=== PATIENT | male | born 1940 | race Two or more races ===

== ENCOUNTER 2019-06-20 10:48 | Inpatient (IN) | payer MEDICARE, MEDICAID ==
[~2019-06-20] VITALS: Ht 165.1 cm; Wt 59.0 kg
[2019-06-20 13:17] LABS: BASOPHILS % 0.8 % (0.0-2.0); EOSINOPHILS % 0.6 % (0.0-5.0); LYMPHOCYTES % 16.5 % (20.0-50.0); MEAN CORPUSCULAR HEMOGLOBIN 29.1 pg (28.0-32.0); MEAN CORPUSCULAR VOLUME 87.4 fL (80.0-94.0); MEAN PLATELET VOLUME 11.4 fl (7.4-10.4); MONOCYTES % 6.4 % (2.0-8.0); NEUTROPHILS % 75.7 % (40.0-76.0); PLATELET 137 x1000/uL (130-400); RED BLOOD CELL COUNT 4.46 mill/uL (4.7-6.1); RED CELL DISTRIBUTION WIDTH 16.5 % (11.6-14.6)
[2019-06-20 13:24] LABS: PROTHROMBIN TIME 10.8 sec (9.6-11.0)
[2019-06-20 13:26] LABS: CHLORIDE 106 mEq/L (98-107)
[2019-06-20] MEDS ORDERED: SODIUM CHLORIDE 0.9% 1,000 ML IV ONE (14:45)
[2019-06-20] MEDS ORDERED: ONDANSETRON HCL 4MG/2ML INJ IV PRN (16:15)
[2019-06-20] MEDS ORDERED: ACETAMINOPHEN 650MG SUPP PR PRN (16:15)
[2019-06-20 16:47] VITALS: BP 127/76
[2019-06-20 20:00] VITALS: BP 138/81
[2019-06-21] VITALS: BP 133/85
[2019-06-21 04:00] VITALS: BP 96/67
[2019-06-21] MEDS ORDERED: LORAZEPAM 2MG/ML CPJ IM PRN (04:00)
[2019-06-21] MEDS ORDERED: LORAZEPAM 2MG/ML CPJ IV PRN (04:30)
[2019-06-21 08:00] VITALS: BP 121/71
[2019-06-21 08:03] LABS: CHLORIDE 109 mEq/L (98-107)
[2019-06-21] MEDS ORDERED: ALBUTEROL (0.083%) 2.5MG/3ML NEB HHN ONE (08:30)
[2019-06-21] MEDS ORDERED: SODIUM POLYSTYRENE SULFONATE 15 G/60 ML BOT PR NR (08:30)
[2019-06-21] MEDS: DEXT 5%/0.45% NACL 1000ML 1,000 ML IV SCH (09:25)
[2019-06-21] MEDS: HALOPERIDOL LACTATE 5MG/ML VIAL IM PRN ×2 (09:53→23:30)
[2019-06-21] MEDS ORDERED: DEXTROSE 50% WATER 50ML SYRINGE IV STA (11:19)
[2019-06-21] MEDS ORDERED: SODIUM BICARBONATE 8.4% 1 MEQ/ML 50ML SYR IV STA (11:19)
[2019-06-21] MEDS ORDERED: LORAZEPAM 2MG/ML CPJ IV ONE (11:45)
[2019-06-21] MEDS ORDERED: DEXTROSE 50% WATER 50ML SYRINGE IV SCH (12:00)
[2019-06-21] MEDS ORDERED: SODIUM POLYSTYRENE SULFONATE 15 G/60 ML BOT PO NR (12:00)
[2019-06-21] MEDS ORDERED: INSULIN REGULAR (HUMULIN R) UD 100 UNITS/ML SYR SUBCUT SCH (12:00)
[2019-06-21 20:00] VITALS: BP 129/69
[2019-06-22] MEDS: DEXT 5%/0.45% NACL 1000ML 1,000 ML IV SCH (02:05)
[2019-06-22] MEDS ORDERED: LORAZEPAM 2MG/ML CPJ IM PRN (02:15)
[2019-06-22] MEDS: DEXTROSE 50% WATER 50ML SYRINGE IV PRN ×2 (09:05→09:47)
[2019-06-22] MEDS ORDERED: BACTERIOSTATIC SODIUM CHLORIDE 0.9% 30ML VIAL IJ ONE (09:50)
[2019-06-22] MEDS ORDERED: CEFAZOLIN 1000MG PREMIX 50 ML IV ONE (10:00)
[2019-06-22 12:00] VITALS: BP 109/69
[2019-06-22] MEDS: BLOOD SUGAR DIAGNOSTIC STRIP TEST SCH ×2 (12:00→21:00)
[2019-06-22] MEDS ORDERED: DEXT 10% WATER 1,000 ML IV SCH (12:00)
[2019-06-22 13:05] LABS: HEMATOCRIT 37.1 % (42.0-52.0); HEMOGLOBIN 12.5 g/dL (14.0-18.0); MEAN CORPUSCULAR HEMOGLOBIN 29.2 pg (28.0-32.0); MEAN CORPUSCULAR VOLUME 86.8 fL (80.0-94.0); PLATELET 207 x1000/uL (130-400); RED BLOOD CELL COUNT 4.27 mill/uL (4.7-6.1); RED CELL DISTRIBUTION WIDTH 16.5 % (11.6-14.6)
[2019-06-22 13:09] LABS: INR 1.1; PARTIAL THROMBOPLASTIN TIME 29.9 sec (23.4-31.0); PROTHROMBIN TIME 11.4 sec (9.6-11.0)
[2019-06-22 13:48] LABS: CHLORIDE 109 mEq/L (98-107)
[2019-06-22 14:43] LABS: PHOSPHORUS 2.7 mg/dL (2.5-4.9)
[2019-06-22 16:00] VITALS: BP 144/77
[2019-06-22] MEDS ORDERED: MIDAZOLAM HCL 5 MG/5 ML VIAL IV PRN (17:03)
[2019-06-22] MEDS ORDERED: FENTANYL CITRATE/PF 50MCG/ML 2ML VIAL IV PRN (17:04)
[2019-06-22] MEDS ORDERED: MIDAZOLAM HCL 5 MG/5 ML VIAL ONE (17:06)
[2019-06-22] MEDS ORDERED: FENTANYL CITRATE/PF 50MCG/ML 2ML VIAL ONE (17:07)
[2019-06-22] MEDS ORDERED: OMEPRAZOLE 20MG CAPSULE EXTENDED RELEASE PO NR (17:48)
[2019-06-22 20:00] VITALS: BP 128/67
[2019-06-22] MEDS: HALOPERIDOL LACTATE 5MG/ML VIAL IM PRN (21:16)
[2019-06-23] VITALS: BP 112/59
[2019-06-23 04:00] VITALS: BP 132/64
[2019-06-23] MEDS: BLOOD SUGAR DIAGNOSTIC STRIP TEST SCH ×4 (06:00→18:31)
[2019-06-23] MEDS: OMEPRAZOLE 20MG CAPSULE EXTENDED RELEASE PO SCH (06:09)
[2019-06-23 06:30] LABS: CHLORIDE 110 mEq/L (98-107)
[2019-06-23] MEDS: QUETIAPINE FUMARATE 25MG TABLET PO SCH ×2 (14:15→20:42)
[2019-06-23 17:42] LABS: BASOPHILS % 0.4 % (0.0-2.0); EOSINOPHILS % 0.6 % (0.0-5.0); HEMATOCRIT. 38.8 % (42.0-52.0); HEMOGLOBIN. 12.8 g/dL (14.0-18.0); LYMPHOCYTES % 34.8 % (20.0-50.0); MEAN CORPUSCULAR HEMOGLOBIN 29.4 pg (28.0-32.0); MEAN CORPUSCULAR VOLUME 89.2 fL (80.0-94.0); MEAN PLATELET VOLUME 11.9 fl (7.4-10.4); MONOCYTES % 14.5 % (2.0-8.0); NEUTROPHILS % 49.7 % (40.0-76.0); PLATELET 184 x1000/uL (130-400); RED BLOOD CELL COUNT 4.35 mill/uL (4.7-6.1)
[2019-06-23] MEDS: LORAZEPAM 2MG/ML CPJ IM PRN (18:15)
[2019-06-23 20:00] VITALS: BP 119/62
[2019-06-23] MEDS: HALOPERIDOL LACTATE 5MG/ML VIAL IM PRN (20:42)
[2019-06-24] VITALS: BP 136/85
[2019-06-24] MEDS: LORAZEPAM 2MG/ML CPJ IM PRN ×3 (00:58→14:47)
[2019-06-24 04:00] VITALS: BP 127/54
[2019-06-24] MEDS: BLOOD SUGAR DIAGNOSTIC STRIP TEST SCH ×4 (06:53→18:00)
[2019-06-24] MEDS: OMEPRAZOLE 20MG CAPSULE EXTENDED RELEASE PO SCH (06:53)
[2019-06-24 08:00] VITALS: BP 112/62
[2019-06-24] MEDS: QUETIAPINE FUMARATE 50MG TABLET PO SCH ×2 (09:07→21:00)
[2019-06-24 10:34] LABS: BASOPHILS % 0.6 % (0.0-2.0); EOSINOPHILS % 1.9 % (0.0-5.0); HEMATOCRIT. 36.7 % (42.0-52.0); HEMOGLOBIN. 12.5 g/dL (14.0-18.0); LYMPHOCYTES % 26.2 % (20.0-50.0); MEAN CORPUSCULAR HEMOGLOBIN 29.9 pg (28.0-32.0); MEAN CORPUSCULAR VOLUME 88.2 fL (80.0-94.0); MEAN PLATELET VOLUME 11.2 fl (7.4-10.4); MONOCYTES % 11.8 % (2.0-8.0); NEUTROPHILS % 59.5 % (40.0-76.0); PLATELET 158 x1000/uL (130-400); RED BLOOD CELL COUNT 4.17 mill/uL (4.7-6.1); RED CELL DISTRIBUTION WIDTH 16.9 % (11.6-14.6)
[2019-06-24 10:41] LABS: CHLORIDE 109 mEq/L (98-107)
[2019-06-24] MEDS: HALOPERIDOL LACTATE 5MG/ML VIAL IM PRN (10:45)
[2019-06-24 16:00] VITALS: BP 119/57
[2019-06-24] MEDS: ENOXAPARIN 40MG/0.4ML SYR SUBCUT SCH (17:00)
[2019-06-25] MEDS: BLOOD SUGAR DIAGNOSTIC STRIP TEST SCH ×5 (00:37→23:48)
[2019-06-25] MEDS: LORAZEPAM 2MG/ML CPJ IM PRN ×3 (00:46→15:27)
[2019-06-25] MEDS: DEXT 5%/0.45% NACL 1000ML 1,000 ML IV SCH ×2 (01:06→12:40)
[2019-06-25] MEDS: DEXTROSE 50% WATER 50ML SYRINGE IV PRN (07:02)
[2019-06-25 07:18] LABS: CHLORIDE 108 mEq/L (98-107)
[2019-06-25] MEDS: OMEPRAZOLE 20MG CAPSULE EXTENDED RELEASE PO SCH (07:20)
[2019-06-25 07:29] LABS: BASOPHILS % 0.3 % (0.0-2.0); EOSINOPHILS % 1.2 % (0.0-5.0); HEMATOCRIT. 40.2 % (42.0-52.0); HEMOGLOBIN. 13.4 g/dL (14.0-18.0); LYMPHOCYTES % 35.4 % (20.0-50.0); MEAN CORPUSCULAR HEMOGLOBIN 29.5 pg (28.0-32.0); MEAN CORPUSCULAR VOLUME 88.5 fL (80.0-94.0); MEAN PLATELET VOLUME 11.1 fl (7.4-10.4); NEUTROPHILS % 56.1 % (40.0-76.0); PLATELET 171 x1000/uL (130-400); RED BLOOD CELL COUNT 4.54 mill/uL (4.7-6.1); RED CELL DISTRIBUTION WIDTH 16.6 % (11.6-14.6)
[2019-06-25 08:00] VITALS: BP 131/59
[2019-06-25] MEDS: QUETIAPINE FUMARATE 50MG TABLET PO SCH ×2 (08:18→21:00)
[2019-06-25 12:00] VITALS: BP 112/57
[2019-06-25 16:00] VITALS: BP 127/73
[2019-06-25] MEDS: ENOXAPARIN 40MG/0.4ML SYR SUBCUT SCH (16:38)
[2019-06-25] MEDS: HALOPERIDOL LACTATE 5MG/ML VIAL IM PRN (22:45)
[2019-06-26 04:00] VITALS: BP 158/80
[2019-06-26] MEDS: BLOOD SUGAR DIAGNOSTIC STRIP TEST SCH ×3 (06:00→17:23)
[2019-06-26] MEDS: LORAZEPAM 2MG/ML CPJ IM PRN ×3 (07:01→22:39)
[2019-06-26] MEDS: OMEPRAZOLE 20MG CAPSULE EXTENDED RELEASE PO SCH (07:06)
[2019-06-26 08:00] VITALS: BP 128/73
[2019-06-26] MEDS: QUETIAPINE FUMARATE 50MG TABLET PO SCH ×2 (09:00→21:00)
[2019-06-26 12:00] VITALS: BP 125/68
[2019-06-26 12:14] LABS: BASOPHILS % 0.8 % (0.0-2.0); EOSINOPHILS % 0.9 % (0.0-5.0); HEMATOCRIT. 31.6 % (42.0-52.0); HEMOGLOBIN. 10.7 g/dL (14.0-18.0); LYMPHOCYTES % 26.2 % (20.0-50.0); MEAN CORPUSCULAR HEMOGLOBIN 29.8 pg (28.0-32.0); MEAN CORPUSCULAR VOLUME 88.4 fL (80.0-94.0); MEAN PLATELET VOLUME 12.2 fl (7.4-10.4); MONOCYTES % 6.2 % (2.0-8.0); NEUTROPHILS % 65.9 % (40.0-76.0); PLATELET 156 x1000/uL (130-400); RED BLOOD CELL COUNT 3.58 mill/uL (4.7-6.1); RED CELL DISTRIBUTION WIDTH 16.5 % (11.6-14.6)
[2019-06-26 12:21] LABS: CHLORIDE 118 mEq/L (98-107)
[2019-06-26 16:00] VITALS: BP 139/80
[2019-06-26] MEDS: ENOXAPARIN 40MG/0.4ML SYR SUBCUT SCH (16:57)
[2019-06-26] MEDS: DEXT 5%/0.45% NACL 1000ML 1,000 ML IV SCH ×2 (17:52→22:49)
[2019-06-26 20:00] VITALS: BP 112/63
[2019-06-26] MEDS ORDERED: POTASSIUM CHLORIDE INJ 40 MEQ in DEXT 5% WATER 500 ML IV SCH (20:00)
[2019-06-27] VITALS: BP 158/85
[2019-06-27] MEDS: BLOOD SUGAR DIAGNOSTIC STRIP TEST SCH ×4 (00:17→17:18)
[2019-06-27 04:00] VITALS: BP 149/63
[2019-06-27] MEDS: LORAZEPAM 2MG/ML CPJ IM PRN (04:05)
[2019-06-27] MEDS: OMEPRAZOLE 20MG CAPSULE EXTENDED RELEASE PO SCH (06:48)
[2019-06-27 08:00] VITALS: BP 139/60
[2019-06-27] MEDS: QUETIAPINE FUMARATE 50MG TABLET PO SCH ×2 (09:00→20:38)
[2019-06-27] MEDS ORDERED: BACTERIOSTATIC SODIUM CHLORIDE 0.9% 30ML VIAL IJ ONE (09:57)
[2019-06-27] MEDS ORDERED: CEFAZOLIN SODIUM 1000MG/VIAL IV ONE (11:30)
[2019-06-27 12:00] VITALS: BP 134/79
[2019-06-27] MEDS ORDERED: CEFAZOLIN 1000MG PREMIX 50 ML IV NR (12:00)
[2019-06-27 12:16] LABS: BASOPHILS % 0.6 % (0.0-2.0); EOSINOPHILS % 0.9 % (0.0-5.0); HEMATOCRIT. 37.1 % (42.0-52.0); HEMOGLOBIN. 12.5 g/dL (14.0-18.0); LYMPHOCYTES % 25.7 % (20.0-50.0); MEAN CORPUSCULAR HEMOGLOBIN 29.8 pg (28.0-32.0); MEAN CORPUSCULAR VOLUME 87.9 fL (80.0-94.0); MEAN PLATELET VOLUME 11.6 fl (7.4-10.4); NEUTROPHILS % 64.8 % (40.0-76.0); PLATELET 153 x1000/uL (130-400); RED BLOOD CELL COUNT 4.21 mill/uL (4.7-6.1); RED CELL DISTRIBUTION WIDTH 16.8 % (11.6-14.6)
[2019-06-27 12:23] LABS: CHLORIDE 107 mEq/L (98-107)
[2019-06-27] MEDS: DEXT 5%/0.45% NACL 1000ML 1,000 ML IV SCH (13:09)
[2019-06-27] MEDS: HALOPERIDOL LACTATE 5MG/ML VIAL IM PRN (13:11)
[2019-06-27] MEDS ORDERED: FENTANYL CITRATE/PF 50MCG/ML 2ML VIAL ONE (13:34)
[2019-06-27] MEDS ORDERED: MIDAZOLAM HCL 5 MG/5 ML VIAL ONE (13:34)
[2019-06-27] MEDS ORDERED: MIDAZOLAM HCL 2 MG/2 ML VIAL IV PRN (14:45)
[2019-06-27] MEDS ORDERED: FENTANYL CITRATE/PF 50MCG/ML 2ML VIAL IV PRN (14:46)
[2019-06-27 16:00] VITALS: BP 136/74
[2019-06-27] MEDS: ENOXAPARIN 40MG/0.4ML SYR SUBCUT SCH (16:26)
[2019-06-27] MEDS ORDERED: METOCLOPRAMIDE HCL 10MG/2ML VIAL IV PRN (18:15)
[2019-06-27 20:00] VITALS: BP 132/74
[2019-06-28] VITALS: BP 125/77
[2019-06-28] MEDS: BLOOD SUGAR DIAGNOSTIC STRIP TEST SCH ×4 (00:55→17:10)
[2019-06-28 04:00] VITALS: BP 111/53
[2019-06-28] MEDS: OMEPRAZOLE 20MG CAPSULE EXTENDED RELEASE PO SCH (06:42)
[2019-06-28] MEDS: DEXT 5%/0.45% NACL 1000ML 1,000 ML IV SCH (06:44)
[2019-06-28 08:00] VITALS: BP 153/81
[2019-06-28 08:00] LABS: BASOPHILS % 0.5 % (0.0-2.0); EOSINOPHILS % 0.8 % (0.0-5.0); HEMATOCRIT. 34.8 % (42.0-52.0); HEMOGLOBIN. 12.1 g/dL (14.0-18.0); LYMPHOCYTES % 31.2 % (20.0-50.0); MEAN CORPUSCULAR HEMOGLOBIN 30.5 pg (28.0-32.0); MEAN CORPUSCULAR VOLUME 87.6 fL (80.0-94.0); MONOCYTES % 9.7 % (2.0-8.0); NEUTROPHILS % 57.8 % (40.0-76.0); RED BLOOD CELL COUNT 3.98 mill/uL (4.7-6.1); RED CELL DISTRIBUTION WIDTH 16.5 % (11.6-14.6)
[2019-06-28 08:13] LABS: CHLORIDE 109 mEq/L (98-107)
[2019-06-28] MEDS: LORAZEPAM 2MG/ML CPJ IM PRN ×3 (09:47→20:36)
[2019-06-28] MEDS: QUETIAPINE FUMARATE 50MG TABLET PO SCH ×2 (09:48→20:36)
[2019-06-28 12:00] VITALS: BP 94/42
[2019-06-28 16:00] VITALS: BP 129/42
[2019-06-28] MEDS: ENOXAPARIN 40MG/0.4ML SYR SUBCUT SCH (17:10)
[2019-06-28 20:00] VITALS: BP 121/78
[2019-06-29] VITALS: BP 121/78
[2019-06-29 04:00] VITALS: BP 127/78
[2019-06-29] MEDS: BLOOD SUGAR DIAGNOSTIC STRIP TEST SCH ×3 (05:12→11:38)
[2019-06-29] MEDS: OMEPRAZOLE 20MG CAPSULE EXTENDED RELEASE PO SCH (05:12)
[2019-06-29 06:42] LABS: BASOPHILS % 0.4 % (0.0-2.0); EOSINOPHILS % 1.1 % (0.0-5.0); HEMATOCRIT. 38.3 % (42.0-52.0); HEMOGLOBIN. 12.9 g/dL (14.0-18.0); LYMPHOCYTES % 24.7 % (20.0-50.0); MEAN CORPUSCULAR HEMOGLOBIN 29.9 pg (28.0-32.0); MEAN CORPUSCULAR VOLUME 88.7 fL (80.0-94.0); MONOCYTES % 8.1 % (2.0-8.0); NEUTROPHILS % 65.7 % (40.0-76.0); RED BLOOD CELL COUNT 4.32 mill/uL (4.7-6.1); RED CELL DISTRIBUTION WIDTH 16.3 % (11.6-14.6)
[2019-06-29] MEDS: LORAZEPAM 2MG/ML CPJ IM PRN ×2 (07:02→11:00)
[2019-06-29 07:03] LABS: CHLORIDE 109 mEq/L (98-107)
[2019-06-29 08:00] VITALS: BP 138/66
[2019-06-29] MEDS: QUETIAPINE FUMARATE 50MG TABLET PO SCH (08:07)
[2019-06-29 09:32] LABS: PLATELET 86 x1000/uL (130-400)
[2019-06-29 12:00] VITALS: BP 123/78
[2019-06-29 12:16] VITALS: BP 138/66
[2019-06-29] MEDS: HALOPERIDOL LACTATE 5MG/ML VIAL IM PRN (12:41)
== END 2019-06-29 13:10 | DRG 919 ==
LOC: ER 10:48 → 6EST 14:35 → EDBEDREQSVC 14:40 → EDBEDREQTM 14:40 → EDBEDREQ 14:41 → ENRESERV 15:16 → 6EST 06-24 11:35
PROVIDERS: ADMIT Internal Medicine Nephrology; ATTEND Internal Medicine Nephrology
PROC: 0DH63UZ Insertion of Feeding Device into Stomach, Percutaneous Approach (ICD-10-PCS; principal; 2019-06-22)
PROC: 0DB68ZX Excision of Stomach, Via Natural or Artificial Opening Endoscopic, Diagnostic (ICD-10-PCS; 2019-06-22)
PROC: 02HV33Z Insertion of Infusion Device into Superior Vena Cava, Percutaneous Approach (ICD-10-PCS; 2019-06-26)
PROC: B548ZZA Ultrasonography of Superior Vena Cava, Guidance (ICD-10-PCS; 2019-06-26)
PROC: 0DH63UZ Insertion of Feeding Device into Stomach, Percutaneous Approach (ICD-10-PCS; 2019-06-27)
DX: T85.528A Displacement of other gastrointestinal prosthetic devices, implants and grafts, initial encounter (principal); G93.41 Metabolic encephalopathy; F03.91 Unspecified dementia, unspecified severity, with behavioral disturbance; E46 Unspecified protein-calorie malnutrition; G93.40 Encephalopathy, unspecified; D64.9 Anemia, unspecified; G20 Parkinson's disease; F20.9 Schizophrenia, unspecified; G62.9 Polyneuropathy, unspecified; I10 Essential (primary) hypertension; J44.9 Chronic obstructive pulmonary disease, unspecified; N40.0 Benign prostatic hyperplasia without lower urinary tract symptoms; E87.5 Hyperkalemia; E86.9 Volume depletion, unspecified; E86.0 Dehydration; K26.9 Duodenal ulcer, unspecified as acute or chronic, without hemorrhage or perforation; K29.70 Gastritis, unspecified, without bleeding; K29.80 Duodenitis without bleeding; K44.9 Diaphragmatic hernia without obstruction or gangrene; Z78.1 Physical restraint status; Z79.899 Other long term (current) drug therapy; Z68.21 Body mass index [BMI] 21.0-21.9, adult
CPT/HCPCS: 36415; 71045; 76937; 80048; 80053; 82962; 83735; 84100; 84132; 85025; 85027; 86677; 92610; 99285; C1725; C1769; J0690; J1630; J1650; J1815; J2060; J2250; J3010; J3480; J3490; J7030; J7060